=== PATIENT | female | born 1985 | race African-American/Black ===

== ENCOUNTER 2019-11-30 04:36 | Inpatient (IN) | payer OTHER ==
[~2019-11-30] VITALS: Ht 165.1 cm; Wt 70.6 kg
[2019-11-30 04:51] VITALS: Ht 165.1 cm; Wt 70.6 kg
[2019-11-30 07:04] LABS: microscopic required? YES; urine erythrocyte 1+ (NEGATIVE)
[2019-11-30 07:48] LABS: BASOPHIL % 0.6 % (0-2); PLATELET COUNT 188 x10^3mcL (130-400); RED CELL DISTRIBUTION WIDTH 18.1 % (11.5-14.5)
[2019-11-30 08:11] LABS: BILIRUBIN TOTAL 0.6 mg/dL (0.20-1.00); CALCIUM 8.8 mg/dL (8.5-10.1); CARBON DIOXIDE 21.1 mmol/L (21-32); POTASSIUM SERUM 4.6 mmol/L (3.5-5.1)
[2019-11-30 08:18] LABS: AMPHETAMINE QUAL UR NONE DETECTED (See below)
[2019-11-30 08:21] LABS: CREATININE SERUM 10.1 mg/dL (0.6-1.0)
[2019-11-30 12:29] LABS: T3 TOTAL 0.55 ng/mL
[2019-11-30 12:42] LABS: CHOLESTEROL/HDL RATIO 4.3; MAGNESIUM 2.4 mg/dL (1.8-2.4); PHOSPHOROUS 7.4 mg/dL (2.5-4.9)
[2019-11-30 12:46] LABS: FREE T4 1.11 ng/dL (0.76-1.46); FREE THYROXINE INDEX 2.6 ug/dL (1.4-4.5); T4(THYROXINE) 7.5 ug/dL (4.7-13.3)
[2019-11-30] MEDS ORDERED: ZESTRIL10 MG PO (14:13)
[2019-11-30 15:09] LABS: CALCIUM 9.3 mg/dL (8.5-10.1); CARBON DIOXIDE 27.5 mmol/L (21-32); POTASSIUM SERUM 4.6 mmol/L (3.5-5.1)
[2019-11-30 15:28] LABS: CREATININE SERUM 10.8 mg/dL (0.6-1.0)
[2019-11-30 15:59] VITALS: BP 239/119
[2019-11-30 18:09] VITALS: BP 137/64
[2019-11-30 19:35] VITALS: BP 152/90
[2019-12-01 04:19] VITALS: BP 214/97
[2019-12-01 05:53] VITALS: BP 137/64
[2019-12-01 06:38] LABS: BASOPHIL % 0.3 % (0-2); PLATELET COUNT 226 x10^3mcL (130-400)
[2019-12-01 06:57] LABS: POTASSIUM SERUM 3.5 mmol/L (3.5-5.1)
[2019-12-01 06:58] LABS: CALCIUM 10.4 mg/dL (8.5-10.1); CARBON DIOXIDE 30.2 mmol/L (21-32); CREATININE SERUM 7.4 mg/dL (0.6-1.0); MAGNESIUM 2.3 mg/dL (1.8-2.4); PHOSPHOROUS 4.8 mg/dL (2.5-4.9)
[2019-12-01 07:17] LABS: RED CELL DISTRIBUTION WIDTH 16.2 % (11.5-14.5)
[2019-12-01 08:02] VITALS: BP 173/83
[2019-12-01 11:33] VITALS: BP 193/96
[2019-12-01 13:07] VITALS: BP 128/74
[2019-12-01 16:33] VITALS: BP 145/69
== END 2019-12-01 17:33 | disposition left against medical advice (07) | DRG 682 ==
LOC: ED 04:36 → IC 09:34 → DU 09:34 → IC 09:45 → DU 13:24
PROVIDERS: Emergency Medicine; Internal Medicine; ADMIT Family Medicine
PROC: 5A1D70Z Performance of Urinary Filtration, Intermittent, Less than 6 Hours Per Day (ICD-10-PCS; principal; 2019-11-30)
PROC: 5A1D70Z Performance of Urinary Filtration, Intermittent, Less than 6 Hours Per Day (ICD-10-PCS; 2019-12-01)
DX: I12.0 Hypertensive chronic kidney disease with stage 5 chronic kidney disease or end stage renal disease (principal); E11.00 Type 2 diabetes mellitus with hyperosmolarity without nonketotic hyperglycemic-hyperosmolar coma (NKHHC); K85.90 Acute pancreatitis without necrosis or infection, unspecified; N18.6 End stage renal disease; I16.1 Hypertensive emergency; E87.1 Hypo-osmolality and hyponatremia; E11.22 Type 2 diabetes mellitus with diabetic chronic kidney disease; E11.43 Type 2 diabetes mellitus with diabetic autonomic (poly)neuropathy; K31.84 Gastroparesis; E83.51 Hypocalcemia; E83.39 Other disorders of phosphorus metabolism; E78.5 Hyperlipidemia, unspecified; F12.10 Cannabis abuse, uncomplicated; F17.210 Nicotine dependence, cigarettes, uncomplicated; Z99.2 Dependence on renal dialysis; Z79.84 Long term (current) use of oral hypoglycemic drugs; Z68.23 Body mass index [BMI] 23.0-23.9, adult
CPT/HCPCS: 36600; 82962; 84439; 87046; 87046-59; 87804; 99406; G0378; J0360; J1200; J1630; J1815; J2060; J2405; J2765; J3490; J7030; J7040; J8597

== ENCOUNTER 2019-12-03 18:51 | Emergency (ER) | payer OTHER ==
[~2019-12-03] VITALS: Ht 165.1 cm; Wt 63.5 kg
[~2019-12-03 18:51] MED LIST: ZESTRIL10 MG PO
[2019-12-03 19:16] VITALS: Ht 165.1 cm; Wt 63.5 kg
[2019-12-03 20:10] LABS: BASOPHIL % 0.6 % (0-2); PLATELET COUNT 210 x10^3mcL (130-400)
[2019-12-03 20:29] LABS: CALCIUM 8.6 mg/dL (8.5-10.1); CARBON DIOXIDE 33.3 mmol/L (21-32); POTASSIUM SERUM 3.4 mmol/L (3.5-5.1)
[2019-12-03 20:31] LABS: CREATININE SERUM 5.3 mg/dL (0.6-1.0)
[2019-12-03 22:06] VITALS: BP 162/82
== END 2019-12-03 22:06 | disposition home or self-care (01) ==
LOC: ED 18:51
PROVIDERS: Emergency Medicine
DX: R51 Headache (principal); K21.9 Gastro-esophageal reflux disease without esophagitis; I10 Essential (primary) hypertension; E11.9 Type 2 diabetes mellitus without complications
CPT/HCPCS: C9113; J1100; J1200; J2765

== ENCOUNTER 2020-04-11 20:03 | Inpatient (IN) | payer OTHER, SELFPAY ==
[~2020-04-11] VITALS: Ht 165.1 cm; Wt 68.0 kg
[~2020-04-11 20:03] MED LIST changes: +ACCU-CHEK1 EAC2 MC; +ADALAT CC60 MG PO; +CARVEDILOL12.5 M1 PO; +CLONIDINE HYDR0.1 M1; +HUMALOG100 UNIT/1; +LANTI; +ZESTRIL10 MG; +ZESTRIL20 MG PO
[2020-04-11 20:17] VITALS: Ht 165.1 cm; Wt 68.0 kg
[2020-04-11 21:30] LABS: PLATELET COUNT 192 x10^3mcL (130-400)
[2020-04-11 21:32] LABS: BASOPHIL % 0 % (0-2); RED CELL DISTRIBUTION WIDTH 17.7 % (11.5-14.5)
[2020-04-11 21:58] LABS: ALBUMIN 3.8 g/dL (3.4-5.0); BILIRUBIN TOTAL 0.7 mg/dL (0.20-1.00); C REACTIVE PROTEIN 1.8 mg/dL (<=0.9); CALCIUM 8.4 mg/dL (8.5-10.1); CARBON DIOXIDE 23.9 mmol/L (21-32); POTASSIUM SERUM 4.4 mmol/L (3.5-5.1); TOTAL PROTEIN, SERUM 7.6 g/dL (6.4-8.2)
[2020-04-11 22:06] LABS: CREATININE SERUM 9.6 mg/dL (0.6-1.0)
[2020-04-12] VITALS (8 sets, daily range): BP systolic 115–193; BP diastolic 64–91
[2020-04-12 06:09] LABS: BASOPHIL % 0 % (0-2); PLATELET COUNT 238 x10^3mcL (130-400); RED CELL DISTRIBUTION WIDTH 18.5 % (11.5-14.5)
[2020-04-12 06:18] LABS: CALCIUM 8.6 mg/dL (8.5-10.1); CARBON DIOXIDE 22.3 mmol/L (21-32); MAGNESIUM 2.6 mg/dL (1.8-2.4); PHOSPHOROUS 5.3 mg/dL (2.5-4.9); POTASSIUM SERUM 4.8 mmol/L (3.5-5.1)
[2020-04-12 06:21] LABS: CREATININE SERUM 9.6 mg/dL (0.6-1.0)
[2020-04-13 05:11] VITALS: BP 155/97
[2020-04-13 06:30] VITALS: BP 188/104
[2020-04-13 07:35] LABS: BASOPHIL % 0.4 % (0-2); PLATELET COUNT 250 x10^3mcL (130-400)
[2020-04-13 07:43] LABS: CALCIUM 9.1 mg/dL (8.5-10.1); CARBON DIOXIDE 27.6 mmol/L (21-32); MAGNESIUM 2.1 mg/dL (1.8-2.4); POTASSIUM SERUM 3.7 mmol/L (3.5-5.1)
[2020-04-13 09:27] VITALS: BP 175/87
== END 2020-04-13 10:45 | disposition left against medical advice (07) | DRG 637 ==
LOC: ED 20:03 → DU 23:53 → IC 23:53 → MU 04-12 19:59 → DU 04-12 23:23
PROVIDERS: Emergency Medicine; Student in an Organized Health Care Education/Training Program; ADMIT Internal Medicine; ATTEND Internal Medicine
PROC: 5A1D70Z Performance of Urinary Filtration, Intermittent, Less than 6 Hours Per Day (ICD-10-PCS; principal; 2020-04-12)
DX: E11.00 Type 2 diabetes mellitus with hyperosmolarity without nonketotic hyperglycemic-hyperosmolar coma (NKHHC) (principal); N18.6 End stage renal disease; I50.33 Acute on chronic diastolic (congestive) heart failure; J96.01 Acute respiratory failure with hypoxia; I16.1 Hypertensive emergency; I13.2 Hypertensive heart and chronic kidney disease with heart failure and with stage 5 chronic kidney disease, or end stage renal disease; K86.1 Other chronic pancreatitis; K31.84 Gastroparesis; E11.43 Type 2 diabetes mellitus with diabetic autonomic (poly)neuropathy; Z99.2 Dependence on renal dialysis; Z79.4 Long term (current) use of insulin; E87.70 Fluid overload, unspecified; E11.65 Type 2 diabetes mellitus with hyperglycemia; F17.210 Nicotine dependence, cigarettes, uncomplicated; Z79.899 Other long term (current) drug therapy; Z91.19 Patient's noncompliance with other medical treatment and regimen; Z53.29 Procedure and treatment not carried out because of patient's decision for other reasons; Z20.828 Contact with and (suspected) exposure to other viral communicable diseases
CPT/HCPCS: 36600; 82962; 83880; 85378; 87804; G0378; J0360; J1815; J2270; J2405; J2765; J3490; J7030; J7040; Q0092; U0003-CS

== ENCOUNTER 2020-07-04 18:31 | Emergency (ER) | payer OTHER ==
[~2020-07-04] VITALS: Ht 165.1 cm; Wt 68.0 kg
[2020-07-04 18:38] VITALS: BP 128/70; Ht 165.1 cm; Wt 68.0 kg
== END 2020-07-04 19:15 | disposition home or self-care (01) ==
LOC: ED 18:31
DX: K11.20 Sialoadenitis, unspecified (principal); K08.89 Other specified disorders of teeth and supporting structures; E11.22 Type 2 diabetes mellitus with diabetic chronic kidney disease; I12.0 Hypertensive chronic kidney disease with stage 5 chronic kidney disease or end stage renal disease; N18.6 End stage renal disease; Z99.2 Dependence on renal dialysis
CPT/HCPCS: J2930